=== PATIENT | male | born 1980 | race Two or more races ===

== ENCOUNTER 2020-10-30 20:38 | Emergency (ER) | payer SELFPAY ==
[~2020-10-30] VITALS: Ht 172.7 cm; Wt 72.6 kg
[2020-10-30 20:38] VITALS: BP 127/70
[2020-10-30] MEDS ORDERED: IBUPROFEN 400 MG TABLET ONE (20:56)
[2020-10-30] MEDS ORDERED: IBUPROFEN 400 MG TABLET PO ONE (21:00)
--- NOTE | 2020-10-30 21:23 | NUR ---
PT OK TO DISCHARGE PER [employer]. Patient discharged to home in stable condition. Written and verbal after care instructions given. Patient verbalizes understanding of instruction.Patient is awake and alert to self, day, and place. PT ambulatory with a steady gait
== END 2020-10-30 21:50 | disposition home or self-care (01) ==
LOC: ER 20:41
DX: S40.012A Contusion of left shoulder, initial encounter (principal); V49.49XA Driver injured in collision with other motor vehicles in traffic accident, initial encounter; Y93.89 Activity, other specified; Y92.413 State road as the place of occurrence of the external cause; Y99.8 Other external cause status
CPT/HCPCS: 73000-TC; 73030-TC